=== PATIENT | male | born 1975 | race Two or more races ===

== ENCOUNTER → 2018-08-22 | Outpatient (CLI) | payer OTHER | END | disposition home or self-care (01) | LOC: RAD 501 08:37 | DX: M25.521 Pain in right elbow (principal) ==

== ENCOUNTER 2021-07-28 09:03 | Outpatient (CLI) | payer OTHER | END 2021-07-28 09:30 | disposition home or self-care (01) | LOC: RAD 09:03 | PROVIDERS: ATTEND Orthopaedic Surgery | DX: M25.511 Pain in right shoulder (principal); M25.512 Pain in left shoulder; M79.621 Pain in right upper arm; M79.622 Pain in left upper arm ==

== ENCOUNTER 2021-11-18 12:25 | Outpatient (CLI) | payer OTHER | END 2021-11-18 12:37 | disposition home or self-care (01) | LOC: RAD 12:25 | PROVIDERS: ATTEND Orthopaedic Surgery | DX: S50.01XA Contusion of right elbow, initial encounter (principal); S20.211A Contusion of right front wall of thorax, initial encounter; S20.212A Contusion of left front wall of thorax, initial encounter; Z76.89 Persons encountering health services in other specified circumstances ==

== ENCOUNTER 2023-07-22 05:06 | Day surgery (SDC) | payer OTHER ==
[~2023-07-22] VITALS: Ht 160 cm; Wt 72.6 kg
[~2023-07-22 05:06] MED LIST: CRESTOR20 MG PO; JANUMET 50-5001 EACH PO; JARDIANCE10 MG PO; ZESTRIL10 M1 PO
[2023-07-22] MEDS ORDERED: TYLENOL ARTHRI650 MG PO (09:11)
[2023-07-22] MEDS ORDERED: KETO10TA2 PO (09:11)
[2023-07-22] MEDS ORDERED: MIRALAX17 GM PO (09:11)
[2023-07-22] MEDS ORDERED: TRAMADOL HCL50 MG PO (09:11)
== END 2023-07-22 11:25 | disposition home or self-care (01) ==
LOC: CIR.AMB 05:06
PROVIDERS: ATTEND Surgery
DX: K40.90 Unilateral inguinal hernia, without obstruction or gangrene, not specified as recurrent (principal); K42.0 Umbilical hernia with obstruction, without gangrene; I10 Essential (primary) hypertension; Z20.822 Contact with and (suspected) exposure to COVID-19
CPT/HCPCS: 49650; 49592; C1781

== ENCOUNTER 2025-11-01 10:58 | Outpatient (CLI) | payer OTHER ==
[~2025-11-01 10:58] MED LIST changes: +KETO10TA2 PO; +MIRALAX17 GM PO; +PERCOCET 5-3251 EACH PO; +RECTICARE30 GM TOP; +TRAMADOL HCL50 MG PO; +TYLENOL ARTHRI650 MG PO
[2025-11-01 11:44] LABS: BASO % 0.4 % (0.1-1.2); EOS # 0.07 (0.04-0.54); EOS % 1.5 % (0.7-7.0); LYMPH # 1.54 (1.18-3.74); LYMPH % 32.9 % (19.3-53.1); MEAN PLATELET VOLUME 9.20 fl (9.4-12.4); MONO # 0.36 (0.24-0.82); MONO % 7.7 % (4.7-12.5); NEUT # 2.68 (1.56-6.13); NEUT % 57.3 % (34.0-71.1); RED CELL DISTRIBUTION WIDTH 11.9 % (11.6-14.4)
[2025-11-01 11:51] LABS: URINE APPEARANCE Clear; URINE BILIRRUBIN Negative (NEGATIVE); URINE BLOOD Negative; URINE COLOR Yellow; URINE GLUCOSE Negative (NEGATIVE); URINE KETONE Negative (NEGATIVE); URINE LEUKOCYTE Trace; URINE NITRATE Negative; URINE PROTEIN Negative (NEGATIVE); URINE UROBILINOGEN 1.0 E.U./dl
[2025-11-01 11:54] LABS: URINE RBC 5.5 uL (0.0-20.8); URINE WBC 2.1 uL (0.0-23.2)
[2025-11-01 12:00] LABS: URINE BACTERIA 3.4 uL (0.0-1933); URINE CAST 0.14 uL (0.0-1.40); URINE EPITHELIAL CELLS 0.3 uL (0.0-38.8)
[2025-11-01 12:10] LABS: INR 1.05
[2025-11-01 13:10] LABS: ALT/SGPT 52.0 U/L (12-78); AST/SGOT 25.0 U/L (15-37); BILIRUBIN TOTAL 0.76 mg/dL (0.3-1.2); BUN CREA RATIO 20.0 (7.0-25.0); CREATININE SERUM 0.83 mg/dL (0.70-1.30); GFR 97.29; GLOBULINA 3.3 G/DL (2.4-3.5); GLUCOSE FASTING 94.0 mg/dL (65-100); OSMOLALITY SERUM 286.0 MOSM/KG (275-295)
== END 2025-11-01 11:10 | disposition home or self-care (01) ==
LOC: LAB 10:58
PROVIDERS: ATTEND Surgery
DX: K61.0 Anal abscess (principal)